=== PATIENT | male | born 1965 | race Caucasian/White ===

== ENCOUNTER 2022-10-29 08:17 | Outpatient (CLI) | payer OTHER | END 2022-10-29 08:18 | disposition home or self-care (01) | LOC: EDSEX → BICCT 08:17 | PROVIDERS: ATTEND Internal Medicine Gastroenterology | DX: K86.2 Cyst of pancreas (principal); D64.9 Anemia, unspecified; R93.3 Abnormal findings on diagnostic imaging of other parts of digestive tract; K31.6 Fistula of stomach and duodenum | CPT/HCPCS: 74170; 82565 ==